=== PATIENT | female | born 1955 | race Hispanic/Latino ===

== ENCOUNTER 2021-07-31 10:41 | Observation (INO) | payer OTHER ==
[~2021-07-31] VITALS: Ht 157.5 cm; Wt 68.3 kg
[2021-07-31 11:26] LABS: BASOPHILS % (AUTO) 0.4 % (0.0-5.0); EOSINOPHILS % (AUTO) 3.1 % (0.0-8.0); HEMATOCRIT 31.4 % (36-48); LYMPHOCYTES % (AUTO) 5.2 % (21.0-51.0); MEAN CORPUSCULAR HEMOGLOBIN 27.7 pg (27.0-33.0); MEAN CORPUSCULAR HGB CONC 32.2 g/dL (32.0-36.0); MONOCYTES % (AUTO) 4.7 % (3.0-13.0); NEUTROPHILS % (AUTO) 85.8 % (40.0-77.0); PLATELET COUNT (AUTO) 349 K/uL (130-400); RED BLOOD CELL COUNT(AUTO) 3.65 MIL/uL (4.00-5.50); WHITE BLOOD COUNT (AUTO) 12.8 K/uL (4.8-10.8)
[2021-07-31 11:51] LABS: B-TYPE NATRIURETIC PEPTIDE 96 pg/mL (0-100)
[2021-07-31 11:56] LABS: CREATININE 0.7 mg/dL (0.5-1.5); POTASSIUM 3.7 mmol/L (3.5-5.1)
[2021-07-31 12:01] LABS: ALBUMIN 2.1 g/dL (3.5-5.0); BILIRUBIN,TOTAL 0.4 mg/dL (0.2-1.0)
[2021-07-31] MEDS ORDERED: ASPIRIN 81MG CHEW TAB PO ONE (13:00)
[2021-07-31 13:37] LABS: CHOLESTEROL 138 mg/dL (<200); HDL CHOLESTEROL 34 mg/dL (35-85); LDL DIRECT 81 mg/dL (0-99); TRIGLYCERIDES 105 mg/dL (30-200)
[2021-07-31 13:40] LABS: HEMOGLOBIN A1C 5.1 % (4.0-6.0)
[2021-07-31] MEDS ORDERED: ATORVASTATIN 20 MG TABLET ONE (14:34)
[2021-07-31] MEDS ORDERED: ASPIRIN 81MG CHEW TAB ONE (14:34)
[2021-07-31] MEDS: ATORVASTATIN 20 MG TABLET PO SCH (14:39)
[2021-07-31] MEDS ORDERED: MAGNESIUM 2GM PREMIX 50ML 50 ML IV SCH (16:30)
[2021-07-31 20:30] VITALS: BP 121/66
[2021-07-31] MEDS ORDERED: AEC81 PO (22:51)
[2021-07-31] MEDS ORDERED: PRED5TAB PO (22:51)
[2021-07-31] MEDS ORDERED: FURO40TA5 PO (22:51)
[2021-07-31] MEDS ORDERED: NITR0.4T50 SL (22:51)
[2021-07-31] MEDS ORDERED: METO25TA6 PO (22:51)
[2021-07-31] MEDS ORDERED: MULT-1038 PO (22:51)
[2021-07-31] MEDS ORDERED: GUAI5SYR PO (22:51)
[2021-07-31] MEDS ORDERED: NYST100P2 MC (22:51)
[2021-07-31] MEDS ORDERED: ZINC28OI TP (22:51)
[2021-07-31] MEDS ORDERED: APIX5TAB PO (22:51)
[2021-07-31] MEDS ORDERED: LEVO750T46 PO (22:51)
[2021-07-31] MEDS ORDERED: OMEP20TA25 PO (22:51)
[2021-07-31] MEDS ORDERED: ATOR40TA69 PO (22:51)
[2021-07-31] MEDS ORDERED: IPRA4AER IH (22:51)
[2021-07-31] MEDS ORDERED: ROPI0.5T7 PO (22:51)
[2021-07-31] MEDS ORDERED: ACET325T51 PO ×2 (22:51)
[2021-08-01] VITALS: BP 136/67
[2021-08-01 04:00] VITALS: BP 126/62
[2021-08-01 05:20] LABS: BASOPHILS % (AUTO) 0.5 % (0.0-5.0); EOSINOPHILS % (AUTO) 4.3 % (0.0-8.0); HEMATOCRIT 30.6 % (36-48); LYMPHOCYTES % (AUTO) 4.7 % (21.0-51.0); MEAN CORPUSCULAR HEMOGLOBIN 27.9 pg (27.0-33.0); MEAN CORPUSCULAR HGB CONC 32.4 g/dL (32.0-36.0); MEAN CORPUSCULAR VOLUME 86.2 fL (79-99); MONOCYTES % (AUTO) 5.2 % (3.0-13.0); NEUTROPHILS % (AUTO) 84.7 % (40.0-77.0); PLATELET COUNT (AUTO) 337 K/uL (130-400); RED BLOOD CELL COUNT(AUTO) 3.55 MIL/uL (4.00-5.50); RED CELL DISTRIBUTION WIDTH 17.6 % (11.0-15.5); WHITE BLOOD COUNT (AUTO) 10.3 K/uL (4.8-10.8)
[2021-08-01 05:54] LABS: CREATININE 0.7 mg/dL (0.5-1.5); POTASSIUM 3.9 mmol/L (3.5-5.1)
[2021-08-01 06:12] LABS: B-TYPE NATRIURETIC PEPTIDE 94 pg/mL (0-100)
[2021-08-01] MEDS ORDERED: NYSTATIN 15 GM POWDER TP PRN (07:30)
[2021-08-01] MEDS ORDERED: IPRATROPIUM IH PRN (07:30)
[2021-08-01] MEDS ORDERED: ZINC OXIDE OINT 60GM TUBE TP PRN (07:30)
[2021-08-01] MEDS ORDERED: ALBUTEROL SULFATE IH PRN (07:30)
[2021-08-01 08:00] VITALS: BP 120/54
[2021-08-01] MEDS: METOPROLOL TARTRATE 25 MG TAB PO SCH ×2 (09:19→21:25)
[2021-08-01] MEDS: ASPIRIN 81 MG EC TAB PO SCH (09:19)
[2021-08-01] MEDS: APIXABAN 5 MG TABLET PO SCH ×2 (09:20→21:24)
[2021-08-01] MEDS: FUROSEMIDE 40 MG TABLET PO SCH ×2 (09:20→21:25)
[2021-08-01 12:15] VITALS: BP 133/78
[2021-08-01 18:43] VITALS: BP 118/58
[2021-08-01 20:00] VITALS: BP 120/70
[2021-08-01] MEDS: ATORVASTATIN 20 MG TABLET PO SCH (21:00)
[2021-08-01] MEDS ORDERED: ROPINIROLE HCL 0.25 MG TABLET PO SCH (21:00)
[2021-08-01] MEDS ORDERED: ATORVASTATIN 40 MG TABLET PO SCH (21:00)
[2021-08-02] VITALS: BP 128/58
[2021-08-02 04:00] VITALS: BP 115/63
[2021-08-02 08:00] VITALS: BP 101/53
[2021-08-02] MEDS: APIXABAN 5 MG TABLET PO SCH (08:44)
[2021-08-02] MEDS: ASPIRIN 81 MG EC TAB PO SCH (08:44)
[2021-08-02] MEDS: METOPROLOL TARTRATE 25 MG TAB PO SCH (08:44)
[2021-08-02] MEDS: FUROSEMIDE 40 MG TABLET PO SCH (08:45)
[2021-08-02] MEDS ORDERED: ASPIRIN 81 MG EC TAB PO SCH (09:00)
[2021-08-02] MEDS ORDERED: LEVOFLOXACIN 750 MG TABLET PO SCH (09:00)
[2021-08-02] MEDS ORDERED: PREDNISONE 5 MG TABLET PO SCH (09:00)
[2021-08-02 11:40] VITALS: BP 96/52
== END 2021-08-02 17:52 | disposition home or self-care (01) ==
LOC: EDH 10:41 → EDHIP 13:04 → 4CH 20:30
PROVIDERS: ADMIT Hospitalist; ATTEND Hospitalist
DX: R79.89 Other specified abnormal findings of blood chemistry (principal); D72.829 Elevated white blood cell count, unspecified; I11.0 Hypertensive heart disease with heart failure; I50.9 Heart failure, unspecified; D64.9 Anemia, unspecified; E87.1 Hypo-osmolality and hyponatremia; K21.9 Gastro-esophageal reflux disease without esophagitis; E78.00 Pure hypercholesterolemia, unspecified; E11.9 Type 2 diabetes mellitus without complications; E78.5 Hyperlipidemia, unspecified; I25.2 Old myocardial infarction; Z86.711 Personal history of pulmonary embolism; Z86.718 Personal history of other venous thrombosis and embolism; Z86.16 Personal history of COVID-19; Z79.899 Other long term (current) drug therapy
CPT/HCPCS: 36415 ×2; 71045; 80048; 80053; 80061; 82550 ×3; 83036; 83605; 83735 ×2; 83874 ×3; 83880 ×2; 84484 ×4; 85025 ×2; 87040 ×2; 93005 ×5; 94760 ×2; 96365; 97039 ×2; 97116 ×2; 97161; 99285; G0378 ×52; J3475; J7512 ×2